=== PATIENT | male | born 1965 | race Caucasian/White ===

== ENCOUNTER 2022-07-01 13:16 | Emergency (ER) | payer OTHER ==
[2022-07-01] MEDS ORDERED: Bacitracin 1 PK ONE (14:16)
[2022-07-01] MEDS ORDERED: Lidocaine 1% 20 ML MDV ONE (14:18)
== END 2022-07-01 14:45 | disposition home or self-care (01) ==
LOC: NAV ERS 13:16
DX: S61.412A Laceration without foreign body of left hand, initial encounter (principal); I10 Essential (primary) hypertension; Z79.899 Other long term (current) drug therapy; W26.0XXA Contact with knife, initial encounter
CPT/HCPCS: 12001